=== PATIENT | female | born 1955 ===

== ENCOUNTER 2018-06-28 07:13 | Emergency (ER) | payer SELFPAY ==
[~2018-06-28] VITALS: Ht 160 cm; Wt 79.4 kg
[~2018-06-28 07:13] MED LIST: ACYC400 PO; ASPI81CH PO; Amoxicillin500 MG PO; CEPH500 PO; Cipro500 MG PO; FAMO20 PO; GABA100 PO; GABA300 PO; GAVILAX17 GM PO; GI COCKTAIL MT; GUAI600T33 PO; INSDET100 SC; INSLI100I SUBQ; INSUASPI; INSULANPEN SQ; LIDOCAINE 2% MT; LISI5 PO; Norco 5-325 Ta1 EACH PO; Novolog100 UNIT/2 SC; ROBITUSSIN100 MG/5 M PO; Tylenol325 MG PO; Vitamin D2000 UNIT PO; [UNRECOGNIZED DRUG - CODE]
[2018-06-28 07:52] LABS: BASOPHILS ABSOLUTE AUTO 0.03 K/mm3 (0.00-0.23); BASOPHILS PERCENT AUTO 1 % (0-2); EOSINOPHILS ABSOLUTE AUTO 0.12 K/mm3 (0.00-0.68); EOSINOPHILS PERCENT AUTO 2 % (0-6); Hemoglobin 13.9 g/dL (11.5-16.0); IMMATURE GRAN ABSOLUTE AUTO 0.01 K/mm3 (0.00-0.10); IMMATURE GRAN PERCENT AUTO 0 % (0-1); LYMPHOCYTES ABSOLUTE AUTO 2.06 K/mm3 (0.84-5.20); LYMPHOCYTES PERCENT AUTO 38 % (21-46); MONOCYTES PERCENT AUTO 7 % (4-13); Mean Corpuscular HGB 30.3 pg (26.0-34.0); Mean Corpuscular HGB Conc 33.9 g/dL (31.5-36.5); Mean Corpuscular Volume 90 fL (80-100); Mean Platelet Volume 10.3 fL (9.1-12.4); NEUTROPHILS ABSOLUTE AUTO 2.88 K/mm3 (1.96-9.15); NEUTROPHILS PERCENT AUTO 52 % (41-73); Platelet Count 303 K/mm3 (150-400); RDW Coefficient Variation 13.2 % (11.7-14.2); RDW Standard Deviation 43.4 fL (35.1-46.3); Red Blood Cell Count 4.58 M/mm3 (3.80-5.20)
[2018-06-28 07:56] LABS: Base Excess Venous 6.9 mmol/L; Bicarbonate Venous 29.6 mmol/L (24.0-30.0); PCO2 Venous 48.4 mmHg (38-42); PO2 Venous 111 mmHg (38-42); pH Blood Venous 7.42 (7.34-7.37)
[2018-06-28 08:21] LABS: Alanine Aminotransfer (ALT/SGP 62 U/L (12-78); Albumin, Blood 3.7 g/dL (3.4-5.0); Albumin/Globulin Ratio 0.8 (0.8-1.8); Alk Phos 430 U/L (50-136); Anion Gap 9 mmol/L (6-16); Aspartate Aminotrans (AST/SGOT 38 U/L (12-37); Beta-hydroxybutyrate 0.9 mg/dL (0.2-2.8); Bilirubin, Total 0.3 mg/dL (0.1-1.0); Blood Urea Nitrogen 30 mg/dL (8-24); Bun/Creatinine Ratio 34.7 (12.0-20.0); CO2, Blood 30 mmol/L (21-32); Calcium, Blood 9.4 mg/dL (8.5-10.1); Chloride, Blood 100 mmol/L (98-108); Creatinine, Blood 0.86 mg/dL (0.40-1.00); Globulin, Blood 4.6 g/dL (2.2-4.0); Glomerular Filtration Rate >60 (60-); Glucose, Blood 331 mg/dL (70-99); Potassium, Blood 3.5 mmol/L (3.5-5.5); Sodium, Blood 139 mmol/L (136-145); Total Protein, Blood 8.3 g/dL (6.4-8.2); Troponin I <0.015 ng/mL (0.000-0.040)
== END 2018-06-28 09:02 | disposition home or self-care (01) ==
LOC: ER 07:13
PROVIDERS: Physician Assistant
DX: E11.65 Type 2 diabetes mellitus with hyperglycemia (principal); I10 Essential (primary) hypertension; Z79.899 Other long term (current) drug therapy; Z79.82 Long term (current) use of aspirin; Z79.4 Long term (current) use of insulin
CPT/HCPCS: 36415; 71046; 80053; 82010; 82803; 82947; 84484; 85025; 93005; 93010; 96360; 99285-25; J7030

== ENCOUNTER → 2018-11-09 | Outpatient (CLI) | payer SELFPAY ==
[2018-11-09 11:17] LABS: BASOPHILS ABSOLUTE AUTO 0.03 K/mm3 (0.00-0.23); BASOPHILS PERCENT AUTO 1 % (0-2); EOSINOPHILS ABSOLUTE AUTO 0.11 K/mm3 (0.00-0.68); EOSINOPHILS PERCENT AUTO 3 % (0-6); Hematocrit 39.9 % (33.0-51.0); Hemoglobin 13.3 g/dL (11.5-16.0); IMMATURE GRAN ABSOLUTE AUTO 0.01 K/mm3 (0.00-0.10); IMMATURE GRAN PERCENT AUTO 0 % (0-1); LYMPHOCYTES ABSOLUTE AUTO 1.58 K/mm3 (0.84-5.20); LYMPHOCYTES PERCENT AUTO 37 % (21-46); MONOCYTES ABSOLUTE AUTO 0.37 K/mm3 (0.16-1.47); MONOCYTES PERCENT AUTO 9 % (4-13); Mean Corpuscular HGB 31.4 pg (26.0-34.0); Mean Corpuscular HGB Conc 33.3 g/dL (31.5-36.5); Mean Corpuscular Volume 94 fL (80-100); Mean Platelet Volume 10.2 fL (9.1-12.4); NEUTROPHILS ABSOLUTE AUTO 2.14 K/mm3 (1.96-9.15); NEUTROPHILS PERCENT AUTO 51 % (41-73); Platelet Count 331 K/mm3 (150-400); RDW Coefficient Variation 13.7 % (11.7-14.2); RDW Standard Deviation 46.9 fL (35.1-46.3); Red Blood Cell Count 4.23 M/mm3 (3.80-5.20); White Blood Cell Count 4.24 K/mm3 (4.00-11.30)
[2018-11-09 11:29] LABS: Albumin, Blood 3.4 g/dL (3.4-5.0); Albumin/Globulin Ratio 0.8 (0.8-1.8); Bilirubin, Total 0.5 mg/dL (0.1-1.0); Bun/Creatinine Ratio 22.1 (12.0-20.0); Creatinine, Blood 1.49 mg/dL (0.40-1.00); Globulin, Blood 4.3 g/dL (2.2-4.0); Potassium, Blood 4.4 mmol/L (3.5-5.5); Total Protein, Blood 7.7 g/dL (6.4-8.2)
== END | disposition home or self-care (01) ==
LOC: LAB SHORT 11:13 → LAB EV 11:13
PROVIDERS: Physician Assistant
DX: R10.84 Generalized abdominal pain (principal); N39.0 Urinary tract infection, site not specified
CPT/HCPCS: 80053; 83690; 85025; 87086

== ENCOUNTER 2019-08-07 08:51 | Day surgery (SDC) | payer MEDICARE ==
[2019-08-07 10:49] LABS: Performing Lab VERACYTE; Test Name FNA
== END 2019-08-07 22:45 | disposition home or self-care (01) ==
LOC: US 08:51
DX: E04.2 Nontoxic multinodular goiter (principal); E11.319 Type 2 diabetes mellitus with unspecified diabetic retinopathy without macular edema; I10 Essential (primary) hypertension; E11.42 Type 2 diabetes mellitus with diabetic polyneuropathy; G89.29 Other chronic pain; E78.2 Mixed hyperlipidemia; K21.9 Gastro-esophageal reflux disease without esophagitis; M54.9 Dorsalgia, unspecified; Z79.82 Long term (current) use of aspirin; Z79.4 Long term (current) use of insulin; Z79.899 Other long term (current) drug therapy
CPT/HCPCS: 10005; 10006

== ENCOUNTER 2019-11-14 13:30 | Emergency (ER) | payer MEDICARE ==
[~2019-11-14] VITALS: Ht 160 cm; Wt 68.0 kg
[2019-11-14] MEDS ORDERED: Aspir 8181 MG PO (14:15)
[2019-11-14] MEDS ORDERED: GABA300 PO (14:15)
[2019-11-14] MEDS ORDERED: ZESTORETIC 20-121 EA PO (14:16)
[2019-11-14] MEDS ORDERED: OMEPRAZOLE20 MG PO (14:16)
[2019-11-14] MEDS ORDERED: NEURONTIN600 MG PO (14:16)
[2019-11-14] MEDS ORDERED: LEVSOD100 PO (14:16)
[2019-11-14] MEDS ORDERED: FURO20 PO (14:16)
[2019-11-14 14:17] LABS: BASOPHILS ABSOLUTE AUTO 0.03 K/mm3 (0.00-0.23); BASOPHILS PERCENT AUTO 1 % (0-2); EOSINOPHILS PERCENT AUTO 2 % (0-6); Hematocrit 37.9 % (33.0-51.0); Hemoglobin 12.5 g/dL (11.5-16.0); IMMATURE GRAN ABSOLUTE AUTO 0.02 K/mm3 (0.00-0.10); IMMATURE GRAN PERCENT AUTO 0 % (0-1); LYMPHOCYTES ABSOLUTE AUTO 1.42 K/mm3 (0.84-5.20); LYMPHOCYTES PERCENT AUTO 27 % (21-46); MONOCYTES ABSOLUTE AUTO 0.63 K/mm3 (0.16-1.47); MONOCYTES PERCENT AUTO 12 % (4-13); Mean Corpuscular HGB 31.6 pg (26.0-34.0); Mean Corpuscular Volume 96 fL (80-100); Mean Platelet Volume 10.4 fL (9.1-12.4); NEUTROPHILS PERCENT AUTO 58 % (41-73); Platelet Count 376 K/mm3 (150-400); RDW Coefficient Variation 17.1 % (11.7-14.2); RDW Standard Deviation 60.8 fL (35.1-46.3); Red Blood Cell Count 3.96 M/mm3 (3.80-5.20)
[2019-11-14] MEDS ORDERED: Colace100 MG PO (14:17)
[2019-11-14 14:32] LABS: Alanine Aminotransfer (ALT/SGP 134 U/L (12-78); Albumin, Blood 2.7 g/dL (3.4-5.0); Albumin/Globulin Ratio 0.5 (0.8-1.8); Anion Gap 6 mmol/L (6-16); Aspartate Aminotrans (AST/SGOT 86 U/L (12-37); Bilirubin, Total 0.7 mg/dL (0.1-1.0); Blood Urea Nitrogen 32 mg/dL (8-24); Bun/Creatinine Ratio 36.3 (12.0-20.0); CO2, Blood 32 mmol/L (21-32); Calcium, Blood 9.4 mg/dL (8.5-10.1); Chloride, Blood 99 mmol/L (98-108); Creatinine, Blood 0.88 mg/dL (0.40-1.00); Glomerular Filtration Rate >60 (60-); Glucose, Blood 98 mg/dL (70-99); Potassium, Blood 3.7 mmol/L (3.5-5.5); Sodium, Blood 137 mmol/L (136-145); Total Protein, Blood 7.7 g/dL (6.4-8.2)
[2019-11-14 14:36] LABS: Troponin I <0.015 ng/mL (0.000-0.040)
[2019-11-14 15:08] LABS: Alk Phos 1434 U/L (50-136)
[2019-11-14] MEDS ORDERED: LOVASTATIN40 MG PO (15:22)
[2019-11-14] MEDS ORDERED: LEVEMIR FL100 UNIT/1 SC (15:23)
[2019-11-14] MEDS ORDERED: NOVOLOG100 UNIT/1 SC (15:23)
== END 2019-11-14 17:45 | disposition home or self-care (01) ==
LOC: ER 13:30
PROVIDERS: Physician Assistant
DX: K20.9 Esophagitis, unspecified (principal); R79.89 Other specified abnormal findings of blood chemistry; E11.9 Type 2 diabetes mellitus without complications; I10 Essential (primary) hypertension; Z79.899 Other long term (current) drug therapy; Z79.82 Long term (current) use of aspirin
CPT/HCPCS: 36415; 71046; 71260; 80053; 83690; 83880; 84484; 85025; 93005; 93010; 99285-25; Q9967

== ENCOUNTER 2020-07-31 10:02 | Inpatient (IN) | payer MEDICARE, OTHER ==
[~2020-07-31] VITALS: Ht 152.4 cm; Wt 67.3 kg
[~2020-07-31 10:02] MED LIST changes: +Aspir 8181 MG PO; +Colace100 MG PO; +FURO20 PO; +LEVEMIR FL100 UNIT/2 SC; +LEVSOD100 PO; +LISINOPRIL-HCT1 EACH PO; +LOVASTATIN40 MG PO; +NEURONTIN600 MG PO; +NOVOLOG FL100 UNIT/3 SC; +OMEPRAZOLE20 MG PO
[2020-07-31 11:05] LABS: BASOPHILS ABSOLUTE AUTO 0.01 K/mm3 (0.00-0.23); BASOPHILS PERCENT AUTO 0 % (0-2); EOSINOPHILS PERCENT AUTO 0 % (0-6); Hematocrit 38.5 % (33.0-51.0); Hemoglobin 12.5 g/dL (11.5-16.0); IMMATURE GRAN ABSOLUTE AUTO 0.04 K/mm3 (0.00-0.10); IMMATURE GRAN PERCENT AUTO 1 % (0-1); LYMPHOCYTES ABSOLUTE AUTO 0.61 K/mm3 (0.84-5.20); LYMPHOCYTES PERCENT AUTO 12 % (21-46); MONOCYTES ABSOLUTE AUTO 0.11 K/mm3 (0.16-1.47); MONOCYTES PERCENT AUTO 2 % (4-13); Mean Corpuscular HGB 29.9 pg (26.0-34.0); Mean Corpuscular HGB Conc 32.5 g/dL (31.5-36.5); Mean Corpuscular Volume 92 fL (80-100); Mean Platelet Volume 10.5 fL (9.1-12.4); NEUTROPHILS ABSOLUTE AUTO 4.46 K/mm3 (1.96-9.15); NEUTROPHILS PERCENT AUTO 85 % (41-73); Platelet Count 248 K/mm3 (150-400); RDW Coefficient Variation 13.4 % (11.7-14.2); RDW Standard Deviation 45.9 fL (35.1-46.3); Red Blood Cell Count 4.18 M/mm3 (3.80-5.20); White Blood Cell Count 5.23 K/mm3 (4.00-11.30)
[2020-07-31 11:17] LABS: Alanine Aminotransfer (ALT/SGP 49 U/L (12-78); Albumin, Blood 2.2 g/dL (3.4-5.0); Albumin/Globulin Ratio 0.4 (0.8-1.8); Alk Phos 958 U/L (50-136); Anion Gap 7 mmol/L (6-16); Aspartate Aminotrans (AST/SGOT 81 U/L (12-37); Bilirubin, Total 0.4 mg/dL (0.1-1.0); Blood Urea Nitrogen 10 mg/dL (8-24); Bun/Creatinine Ratio 15.2 (12.0-20.0); CO2, Blood 33 mmol/L (21-32); Calcium, Blood 8.2 mg/dL (8.5-10.1); Chloride, Blood 97 mmol/L (98-108); Creatinine, Blood 0.66 mg/dL (0.40-1.00); Globulin, Blood 5.1 g/dL (2.2-4.0); Glomerular Filtration Rate >60 (60-); Glucose, Blood 214 mg/dL (70-99); Potassium, Blood 3.2 mmol/L (3.5-5.5); Sodium, Blood 137 mmol/L (136-145); Total Protein, Blood 7.3 g/dL (6.4-8.2)
[2020-07-31 12:27] LABS: Source, Urine Clean Catch
[2020-07-31 12:41] LABS: Appearance, Urine Clear (Clear); Bilirubin, Urine Neg (Neg); Blood, Urine 1+ (Neg); Color, Urine Yellow (P-Yellow); Glucose Qualitative, Urine 4+ (Neg); Ketones, Urine 3+ (Neg); Leukocyte Esterase, Urine Neg (Neg); Nitrite, Urine Neg (Neg); Protein, Urine 2+ (Neg); Specific Gravity, Urine 1.005 (1.003-1.022); Urobilinogen, Urine 1+ (Normal)
[2020-07-31 12:56] LABS: Bacteria Few /hpf; Red Blood Cells, Urine 0-2 /hpf (0-2); Squamous Epithelial Cells Few /hpf (Few); White Blood Cells, Urine 0-2 /hpf (0-5)
[2020-07-31 18:13] LABS: PCO2 Arterial 49.6 mmHg (35-45); PO2 Arterial 57.7 mmHg (80-100); pH Blood Arterial 7.41 (7.35-7.45)
--- NOTE | 2020-08-01 06:47 | NUR ---
SUMMARY PT ABLE TO SLEEP THROUGH MOST OF NIGHT. ALERT AND ORIENTED X 3, FAROESE SPEAKING. LUNG SOUNDS DIMISHED WITH O2 AT 3 LPM VIA N/C, COUGHING UP CLEAR THICK SPUTUM, SMALL AMTS. STAND BY ASSIST TO BSC, VOIDING CLEAR YELLOW URINE. STEADY ON FEET. ISOLATION PRECAUTIONS THOUGHOUT SHIFT. WILL CONTINUE TO MONITOR
--- NOTE | 2020-08-01 16:52 | NUR ---
SHIFT NOTE PT WITH SPO2 IN HIGH 80s AT SHIFT CHANGE ON 4L NC, PT WAS PLACED ON 5L O2 WITH SPO2 93%. PT HAS BEEN UP TO BEDSIDE CHAIR FOR MOST OF THE DAY. NADN. VSS. HAS NEEDED COVERAGE FOR GLUCOSE, DR FIGUEROA IS AWARE NO NEW ORDER TO CHANGE THE SLIDING SCALE WE WILL OBSERVE HOW PT REPONDS TO MED SLIDING SCALE WITH ADDITIONAL 7UNITS OF COVERAGE, GLUCOSE DOES APPEAR TO BE REPSONDING WELL THIS SHIFT TO INSULIN MED SS. LS ARE CLEAR IN THE UPPER LOBES WITH COARSE BASES BILAT. PT A/O X4. PT IS NON [place]OT[place] SPEAKING BUT DOES UNDERSTAND BASIC [place].
--- NOTE | 2020-08-02 06:19 | NUR ---
SUMMARY PT RESTING COMFORTABLY MOST THE NIGHT. USED INTERPRETOR PHONE TO COMMUNICATE WITH PATIENT. 02 SATS REMAINED IN THE UPPER 80s TO LOWER 90s WITH NO COMPLAINTS OF PAIN OR SOB ON 6L NC. PT INDEPENDENT TRANSFERING FROM BED TO CHAIR. AT 0525 I WENT TO GIVE THE PT MEDICTION AND SHE WAS SOB WITH 02 SATS IN THE LOWER TO MID 80s. EPIC WILLOW SPECIALIST WAS CALLED, PT COMPLAINED OF CHEST PAIN AND HEADACHE 8/10 PAIN. EKG WAS DONE AND RT WAS CALLED. PT PLACED ON 11L HIGH FLOW NC. PT 02 SATS IN THE LOWER 90s, PT STATES SHE IS NO LONGER SOB, HEADACHE AND CHEST PAIN RESOLVED. PLACED ON CONTINOUS OXIMETER TO MONITOR CLOS[place]. PT REMINDED TO USE CALL LIGHT IF SHE HAS ANY CHANGES. CALL LIGHT IS IN REACH, BED IN LOW POSITION.
--- NOTE | 2020-08-02 18:13 | NUR ---
SHIFT NOTE PT HAS BEEN TITRATED FROM 9-14L O2 VIA HIGH FLOW NC T/O THE DAY. SPO2 DOES REMAIN AROUND 88%-90% AT 14L WHILE UP IN CHAIR, AND 94% ON 9-11L WHILE SLEEPING. CAR REPAIRER APPRENTICE PHONE IS USED T/O THE DAY AND DIRECT CONVERSATION WITH PT. PT DENIES SOB OR CP THIS EVENING. PT DID REPORT SOME CP WITH INSPIRATION THIS AM BUT HAS SINCE RESOLVED. PT HAS BEEN UP TO THE SEDSIDE CHAIR FOR MOST OF THE DAY. DR DOMINGUEZ IS AWARE OF PT'S O2 NEEDS HE STS TO CALL HIM IF SHE REQUIRES AIRVO PT WILL LIKELY NEED UPGRADED TO ICU STATUS. PT IS CURRETNLY RESTING IN CHAIR WATCHING TV NADN
--- NOTE | 2020-08-03 04:44 | NUR ---
SUMMARY INTERPRETOR PHONE USED TO COMMUNICATE WITH PT. SHE IS COOPERATIVE AND SLEPT MOST THE NIGHT. O2 SATS REMAINED IN THE UPPER 80s TO LOWER 90s THROUGHOUT THE NIGHT. WITH ACTIVITY HER O2 SATS WOULD DROP INTO THE LOWER 70s BUT AT REST PT WOULD QUICKLY RECOVER WITH COACHING ON HER BREATHING. VSS NO ACUTE CHANGES OVERNIGHT. CALL LIGHT IN REACH, CHECKING ON PT REGULARLY, BED IN LOW POSTION.
--- NOTE | 2020-08-03 18:41 | NUR ---
SHIFT SUMMARY NO ACUTE CHANGES NOTED THROUGH THE DAY. PT REMAINS ON 15L O2 VIA HIGH FLOW NC, O2 SATS FLUCTUATE BETWEEN 88-92% AT REST, O2 SATS WILL DECREASE TO LOW 80'S WITH ACTIVITY, PT TAKES A MOMENT TO RECOVERY, DB&C ENC, PT HAS ATTEMPTED TO HOLD HER COUGH, SHE WAS EDUCATED VIA VIDEO NEWS EDITOR PHONE, PT IS TOLERATING PO INTAKE WNL, VOING WITH NO PROBLEMS, PT'S PERSONAL PHONE WAS CONNECTED BETWEEN USE OF VIDEO NEWS EDITOR PHONE SO THAT SHE COULD CONTACT FAMILY. PT CALLS FOR ASSISTANCE PRN. WCPRIYANKA & REPORT TO PEDRO RN. CALL LIGHT IN REACH
--- NOTE | 2020-08-04 05:53 | NUR ---
SHIFT SUMMARY PT A&O X4; UPHOLSTERY HANDLER PHONE USED FOR COMMUNICATION; VSS; NSR NOTED ON TELE; DESATURATION W/ ACTIVITY; SIGNIFICANT NOSE BLEEDING 1X THIS SHIFT; NO ACUTE CHANGES NOTED; CALL LIGHT IN REACH; BED IN LOWEST POSITION; WILL CONTINUE TO MONITOR UNTIL HAND OFF TO DAY SHIFT RN.
--- NOTE | 2020-08-04 19:36 | NUR ---
SHIFT SUMMARY PT HAS HAD A GOOD DAY. SHE HAS BEEN USING THE NON BREATHER MASK THROUGH THE DAY IN BETWEEN MEALS TO DECREASE DRYNESS IN HER NOSE. SHE KEEPS GETTING BLOODY NOSES. PT WAS GIVEN SALINE NASAL SPRAY. SHE TOLERATED THE MASK WITH NO PROBLEMS, RT WAS CALLED TO ASSESS PT & TO ASSIST WITH PRONE POSITIONING. PT WAS SWITCHED TO AN AIRVO THIS AFTERNOON TO ENHANCE HUMIDIFICATION, 40 L 50% FIO2, RESP REMAIN UNLABORED, O2 SATS >93%. HOSPITALIST WAS CONTACTED BY RT, AIRVO WAS AGREED UPON. PT HAS DENIED SOB AT REST, SHE DESATS TO MID 80'S WITH ACTIVITY NUT WILL RECOVERY QUICKLY. SHE IS TLERATING PO INTAKE, VOIDING WNL. NO ACUTE CHANGES NOTED, REPORT GIVEN TO NOC RN, CALL LIGHT IN REACH.
--- NOTE | 2020-08-05 06:21 | NUR ---
SUMMARY PT ON AIRVO AT BEGINNING OF SHIFT WITH O2 SATS IN THE LOWER 90s. INCIDENT RESPONSE MANAGER PHONE USED TO COMMUNICATE WITH PT AND EXPLAIN PROCEDURES. PT REQUESTED USING THE NRB MASK WHILE SHE SLEPT BECAUSE HER NOSE HURTS. PT SLEPT MOST THE NIGHT ON THE NRB WITH 02 SATS IN THE LOWER 90s.CALL LIGHT IN REACH AND BED IN LOW POSITION.
--- NOTE | 2020-08-05 07:35 | NUR ---
ASSUMED PATIENT CARE. PATIENT SLEEPING COMFORTABLY IN BED, NO SIGNS OF ACUTE DISTRESS, WCTM.
--- NOTE | 2020-08-05 18:38 | NUR ---
NO ACUTE EVENTS THIS SHIFT. PATIENT HYPERTENSIVE AT TIMES, IMPROVEMENT POST-PO BP TAG WRITER. PATIENT ON 4L HUMIDIFIED NC THIS SHIFT, RANGED FROM 88-MID 90S. PATIENT ENCOURAGED TO LAY PRONE, PATIENT NAPPED IN PRONE POSITION THIS SHIFT. PATIENT ENDORSED SORE THROAT, ORDER FOR HURRICANE SPRAY GIVEN. PATIENT DENIED ANY OTHER PAIN. PATIENT IS SBA FOR LINE MANAGEMENT.
--- NOTE | 2020-08-06 04:32 | NUR ---
SHIST SUMMARY PT ABLE TO MAINTAIN 02 SATS @ REST ON 5LO2 AT START OF SHIFT, 0150 PT FOUND TO BE DESATTING AND PLACED ON 8L NRB, RT CALLED WHO PLACED PT ON AIRVO FOR REMAINDER OF NIGHT, PT SLEPT WELL, NO C/O ANY KIND, ST BY ASSIST TO BSC W/INCREASED O2 NEEDS DURING XFER, SLEEPING AT THIS TIME, CALL LIGHT IN REACH, WILL CONT TO MONITOR UNTIL REPORT GIVEN TO DAY RN.
--- NOTE | 2020-08-06 06:00 | NUR ---
SHIFT SUMMARY PT ABLE TO MAINTAIN 02 SATS AT REST ON 5LO2 AT START OF SHIFT, @ 0150 PT FOUND DESATTING AT PLACED ON 10L HIFLO FOR REMAINER OF NIGHT. SLEPT WELL, NO C/O ANY KIND, ST BY ASSIST TO BSC, CALLS APPROPIATELY, CALL LIGHT IN REACH, WILL CONT TO MONITOR UNTIL REPORT GIVEN TO DAY RN.
[2020-08-06 08:53] LABS: Anion Gap 4 mmol/L (6-16); Blood Urea Nitrogen 28 mg/dL (8-24); Bun/Creatinine Ratio 44.9 (12.0-20.0); CO2, Blood 33 mmol/L (21-32); Calcium, Blood 8.8 mg/dL (8.5-10.1); Chloride, Blood 101 mmol/L (98-108); Creatinine, Blood 0.62 mg/dL (0.40-1.00); Glomerular Filtration Rate >60 (60-); Glucose, Blood 304 mg/dL (70-99); Potassium, Blood 4.3 mmol/L (3.5-5.5); Sodium, Blood 138 mmol/L (136-145)
--- NOTE | 2020-08-06 18:04 | NUR ---
SHIFT NOTE PT HAS HAD DECREASED O2 NEEDS T/O THE DAY HAS SPO2 OF 92% ON 3L NC. PT HAS HAD CHEMBG'S IN THE 300s T/O THE DAY, BUT LAST BLOOD SUGAR WAS 36. DR ELLIOTT IS NOTIFIED, OJ IS DRANK, D50 IS ADMINISTERED IV. WILL REASSESS BLOOD SUGAR WITHIN AN HOUR OF D50 ADMINISTATION. DR ELLIOTT WILL CHANGE INSULIN DOSING. PT REPORTS SOME DIZZINESS, BUT IS SETTING UP SMILING ANSWERING QUESTIONS APPROPRIATELY WITH EXTENSION WORK DIRECTOR PHONE.
[2020-08-07 05:45] LABS: Alanine Aminotransfer (ALT/SGP 38 U/L (12-78); Albumin/Globulin Ratio 0.5 (0.8-1.8); Alk Phos 533 U/L (50-136); Anion Gap 4 mmol/L (6-16); Aspartate Aminotrans (AST/SGOT 33 U/L (12-37); Bilirubin, Total 0.3 mg/dL (0.1-1.0); Blood Urea Nitrogen 37 mg/dL (8-24); Bun/Creatinine Ratio 50.9 (12.0-20.0); CO2, Blood 31 mmol/L (21-32); Calcium, Blood 8.7 mg/dL (8.5-10.1); Chloride, Blood 99 mmol/L (98-108); Creatinine, Blood 0.73 mg/dL (0.40-1.00); Globulin, Blood 4.1 g/dL (2.2-4.0); Glomerular Filtration Rate >60 (60-); Glucose, Blood 376 mg/dL (70-99); Potassium, Blood 4.6 mmol/L (3.5-5.5); Sodium, Blood 134 mmol/L (136-145); Total Protein, Blood 6.1 g/dL (6.4-8.2)
--- NOTE | 2020-08-07 10:42 | NUR ---
MORNING MEDICATION ADMIN IS PART OF EMAR DOWNTIME, PLEASE SEE DOWNTIME DOUCMENTATION
[2020-08-07 15:25] LABS: BASOPHILS ABSOLUTE AUTO 0.01 K/mm3 (0.00-0.23); BASOPHILS PERCENT AUTO 0 % (0-2); EOSINOPHILS PERCENT AUTO 0 % (0-6); Hematocrit 39.5 % (33.0-51.0); Hemoglobin 13.2 g/dL (11.5-16.0); IMMATURE GRAN ABSOLUTE AUTO 0.15 K/mm3 (0.00-0.10); IMMATURE GRAN PERCENT AUTO 2 % (0-1); LYMPHOCYTES ABSOLUTE AUTO 0.86 K/mm3 (0.84-5.20); LYMPHOCYTES PERCENT AUTO 12 % (21-46); MONOCYTES PERCENT AUTO 4 % (4-13); Mean Corpuscular HGB 30.3 pg (26.0-34.0); Mean Corpuscular HGB Conc 33.4 g/dL (31.5-36.5); Mean Corpuscular Volume 91 fL (80-100); Mean Platelet Volume 10.3 fL (9.1-12.4); NEUTROPHILS ABSOLUTE AUTO 6.05 K/mm3 (1.96-9.15); NEUTROPHILS PERCENT AUTO 82 % (41-73); Platelet Count 451 K/mm3 (150-400); RDW Coefficient Variation 13.9 % (11.7-14.2); RDW Standard Deviation 45.9 fL (35.1-46.3); Red Blood Cell Count 4.36 M/mm3 (3.80-5.20); White Blood Cell Count 7.37 K/mm3 (4.00-11.30)
--- NOTE | 2020-08-07 17:28 | NUR ---
Per admit trigger, I attempted to meet with Kayleen to offer prayer and spiritual support. Per chart, she is mandaen. Nursing advised against in-person visit as pt is Covid+ and does not speak cambodian at all. Provided jing for RN to give pt. Asked nursing to inform pt that chaplains a holding her in prayer. Payroll Tax Analyst services will remain available.
--- NOTE | 2020-08-07 18:44 | NUR ---
SHIFT NOTE MORNING SHIFT ASSESSMENT IN DOWNTIME DOCUMENTATION AND MORNING MEDS. PT HAS BEEN RETURNED TO 3L NC WITH SPO2 OF 94%. PT HAS BEEN UP TO BEDSIDE CHIAR AND LYING IN PRONE POSITION INTERMITTENTLY T/O THE DAY. HYPOTENSION NOTED AT THE END OF THE SHIFT, WILL OBSERVE. EVENING CHEMBG 75, EVENING INSULIN WAS HELD. OTHEWISE NO ACUTE CHANGES
--- NOTE | 2020-08-08 05:45 | NUR ---
SHIFT SUMMARY PT SLEPT T/O SHIFT. PT ALERT AND ORIENTED. HR STABLE. BP STABLE. PT REPORTS NO CP OR PRESSURE. OXYGEN SATURATION MAINTAINED ABOVE 92% ON 3 L OF OXYGEN VIA NC. PT ABLE TO TURN SELF IN BED. WILL CONTINUE TO MONITOR UNTIL REPORT GIVEN TO DAYSHIFT RN.
--- NOTE | 2020-08-08 08:27 | NUR ---
ASSUMING CARE OF PT, RECEIVED REPORT FROM LOREE AMIN. PT SITTING IN BEDSIDE CHAIR WITH BREAKFAST TRAY. PT TAKES MORNING MEDICATION WITHOUT DIFFICULTY, DENIES NEEDS AT THIS TIME. CALL LIGHT WITHIN REACH.
--- NOTE | 2020-08-08 11:24 | NUR ---
REPEAT CHEMBG REVEALS BLOOD SUGAR LEVEL OF 430. DR ELLIOTT NOTIFIED OF RESULTS, GIVES INSTRUCTIONS TO CONTINUE TO GIVE INSULIN ORDERED.
[2020-08-08 11:32] LABS: Anion Gap 7 mmol/L (6-16); Blood Urea Nitrogen 45 mg/dL (8-24); Bun/Creatinine Ratio 64.4 (12.0-20.0); CO2, Blood 30 mmol/L (21-32); Calcium, Blood 8.6 mg/dL (8.5-10.1); Chloride, Blood 96 mmol/L (98-108); Glomerular Filtration Rate >60 (60-); Glucose, Blood 453 mg/dL (70-99); Potassium, Blood 4.1 mmol/L (3.5-5.5); Sodium, Blood 133 mmol/L (136-145)
== END 2020-08-08 16:35 | disposition home or self-care (01) | DRG 177 ==
LOC: ER 10:02 → PCU 10:03
PROVIDERS: Emergency Medicine; Family Medicine; Internal Medicine; Physician Assistant; ADMIT Hospitalist
PROC: XW033E5 Introduction of Remdesivir Anti-infective into Peripheral Vein, Percutaneous Approach, New Technology Group 5 (ICD-10-PCS; principal; 2020-07-31)
PROC: XW033E5 Introduction of Remdesivir Anti-infective into Peripheral Vein, Percutaneous Approach, New Technology Group 5 (ICD-10-PCS; 2020-08-01)
PROC: XW033E5 Introduction of Remdesivir Anti-infective into Peripheral Vein, Percutaneous Approach, New Technology Group 5 (ICD-10-PCS; 2020-08-02)
PROC: XW033E5 Introduction of Remdesivir Anti-infective into Peripheral Vein, Percutaneous Approach, New Technology Group 5 (ICD-10-PCS; 2020-08-03)
PROC: XW033E5 Introduction of Remdesivir Anti-infective into Peripheral Vein, Percutaneous Approach, New Technology Group 5 (ICD-10-PCS; 2020-08-04)
DX: U07.1 COVID-19 (principal); J96.01 Acute respiratory failure with hypoxia; J12.89 Other viral pneumonia; E87.3 Alkalosis; E11.9 Type 2 diabetes mellitus without complications; I10 Essential (primary) hypertension; K21.9 Gastro-esophageal reflux disease without esophagitis; E78.5 Hyperlipidemia, unspecified; R74.8 Abnormal levels of other serum enzymes; E87.6 Hypokalemia; E03.9 Hypothyroidism, unspecified; Z79.4 Long term (current) use of insulin
CPT/HCPCS: 36415; 36600; 71045; 71046; 76705; 80048; 80053; 81001; 82803; 82947; 82977; 83036; 83690; 84145; 85025; 93005; 93010; 94660; 94761; 94762; 96365; 96372-59; 96375; 99285-25; A9270; A9270-GY; J0456; J0696; J1650; J7050; J7799; U0003

== ENCOUNTER → 2021-07-29 | Outpatient (CLI) | payer MEDICARE ==
[2021-07-29 14:33] LABS: Alanine Aminotransfer (ALT/SGP 128 U/L (12-78); Albumin, Blood 3.2 g/dL (3.4-5.0); Albumin/Globulin Ratio 0.7 (0.8-1.8); Alk Phos 624 U/L (50-136); Anion Gap 5 mmol/L (6-16); Aspartate Aminotrans (AST/SGOT 69 U/L (12-37); Bilirubin, Total 0.4 mg/dL (0.1-1.0); Blood Urea Nitrogen 25 mg/dL (8-24); Bun/Creatinine Ratio 29.3 (12.0-20.0); CHOL/HDL RATIO 2.6; CO2, Blood 30 mmol/L (21-32); Calcium, Blood 9.3 mg/dL (8.5-10.1); Chloride, Blood 105 mmol/L (98-108); Cholesterol 227 mg/dL (50-200); Creatinine, Blood 0.85 mg/dL (0.40-1.00); Globulin, Blood 4.3 g/dL (2.2-4.0); Glomerular Filtration Rate >60 (60-); Glucose, Blood 133 mg/dL (70-99); HDL Cholesterol 88 mg/dL (>39); LDL/HDL RATIO 1.3; Low Density Lipoprotein Chol 110 mg/dL (0-110); Potassium, Blood 3.9 mmol/L (3.5-5.5); Sodium, Blood 140 mmol/L (136-145); Total Protein, Blood 7.5 g/dL (6.4-8.2); Triglycerides 144 mg/dL (30-160); Very Low Density Lipoprot Chol 28 mg/dL (6-32)
[2021-07-29 14:39] LABS: Glutamyl Transpeptidase, GGT 1245 U/L (5-55)
== END | disposition home or self-care (01) ==
LOC: LAB SHORT 12:37
PROVIDERS: Family Medicine
DX: E78.5 Hyperlipidemia, unspecified (principal); R94.5 Abnormal results of liver function studies
CPT/HCPCS: 80053; 80061; 82977

== ENCOUNTER → 2022-09-15 | Outpatient (CLI) | payer MEDICARE | LOC: LAB SHORT 13:06 | DX: E03.9 Hypothyroidism, unspecified (principal) | CPT/HCPCS: 84443 ==

== ENCOUNTER 2024-08-21 19:17 | Inpatient (IN) | payer MEDICARE, OTHER ==
[~2024-08-21] VITALS: Ht 167.6 cm; Wt 62.1 kg
[2024-08-21] MEDS ORDERED: FUROSEMIDE20 MG PO (19:34)
[2024-08-21] MEDS ORDERED: GABA100 PO (19:34)
[2024-08-21] MEDS ORDERED: JARDIANCE10 MG PO (19:35)
[2024-08-21] MEDS ORDERED: OMEP20ER PO (19:36)
[2024-08-21] MEDS ORDERED: ZESTRIL40 M2 PO (19:37)
[2024-08-21] MEDS ORDERED: TIZANIDINE HCL2 M4 PO (19:38)
[2024-08-21] MEDS ORDERED: METFORMIN HCL500 M3 PO (19:38)
[2024-08-21 19:45] LABS: BASOPHILS ABSOLUTE AUTO 0.02 K/mm3 (0.00-0.23); BASOPHILS PERCENT AUTO 0 % (0-2); EOSINOPHILS PERCENT AUTO 2 % (0-6); Hematocrit 35.3 % (33.0-51.0); Hemoglobin 11.5 g/dL (11.5-16.0); IMMATURE GRAN ABSOLUTE AUTO 0.02 K/mm3 (0.00-0.10); IMMATURE GRAN PERCENT AUTO 0 % (0-1); LYMPHOCYTES ABSOLUTE AUTO 2.45 K/mm3 (0.84-5.20); LYMPHOCYTES PERCENT AUTO 40 % (21-46); MONOCYTES ABSOLUTE AUTO 0.53 K/mm3 (0.16-1.47); MONOCYTES PERCENT AUTO 9 % (4-13); Mean Corpuscular HGB 30.4 pg (26.0-34.0); Mean Corpuscular HGB Conc 32.6 g/dL (31.5-36.5); Mean Corpuscular Volume 93 fL (80-100); Mean Platelet Volume 9.9 fL (9.1-12.4); NEUTROPHILS ABSOLUTE AUTO 2.94 K/mm3 (1.96-9.15); NEUTROPHILS PERCENT AUTO 49 % (41-73); Platelet Count 290 K/mm3 (150-400); RDW Coefficient Variation 15.9 % (11.7-14.2); RDW Standard Deviation 54.9 fL (35.1-46.3); Red Blood Cell Count 3.78 M/mm3 (3.80-5.20); White Blood Cell Count 6.06 K/mm3 (4.00-11.30)
[2024-08-21] MEDS ORDERED: Dextrose 10% 500 ML IV SCH ×2 (20:00→23:39)
[2024-08-21] MEDS ORDERED: Dextrose 50% 50 ML Vial ONE (20:01)
[2024-08-21 20:20] LABS: Alanine Aminotransfer (ALT/SGP 22 U/L (12-78); Albumin, Blood 3.1 g/dL (3.4-5.0); Albumin/Globulin Ratio 0.8 (0.8-1.8); Alk Phos 122 U/L (50-136); Anion Gap 11 mmol/L (3-11); Aspartate Aminotrans (AST/SGOT 27 U/L (12-37); Bilirubin, Direct <0.1 mg/dL (0.0-0.3); Bilirubin, Indirect Unable to Calculate mg/dL (0.1-0.7); Bilirubin, Total 0.1 mg/dL (0.1-1.0); Blood Urea Nitrogen 58 mg/dL (8-24); Bun/Creatinine Ratio 24.7 (12.0-20.0); CO2, Blood 30 mmol/L (21-32); Chloride, Blood 100 mmol/L (98-108); Creatinine, Blood 2.35 mg/dL (0.40-1.00); Globulin, Blood 3.9 g/dL (2.2-4.0); Glomerular Filtration Rate 22 (60-); Glucose, Blood 119 mg/dL (70-99); Potassium, Blood 3.6 mmol/L (3.5-5.5); Sodium, Blood 137 mmol/L (136-145)
[2024-08-21 22:40] LABS: Source, Urine Clean Catch
[2024-08-21 22:43] LABS: Bilirubin, Urine Neg (Neg); Blood, Urine 1+ (Neg); Glucose Qualitative, Urine 3+ (Neg); Ketones, Urine Neg (Neg); Leukocyte Esterase, Urine 2+ (Neg); Nitrite, Urine Neg (Neg); Protein, Urine 1+ (Neg); Specific Gravity, Urine 1.005 (1.003-1.022); Urobilinogen, Urine NORM (Normal)
[2024-08-21 22:49] LABS: Appearance, Urine Hazy (Clear); Color, Urine Yellow (P-Yellow)
[2024-08-21 22:51] LABS: Red Blood Cells, Urine 0-2 /hpf (0-2); Squamous Epithelial Cells Many /hpf (Few)
[2024-08-21 22:52] LABS: Bacteria Many /hpf
[2024-08-21] MEDS ORDERED: FLU VACC TS2024-25(6MOS UP)/PF 45 MCG/0.5 ML SYRINGE IM SCH (23:10)
[2024-08-21] MEDS ORDERED: Acetaminophen 325 MG TABLET PO ONE (23:35)
[2024-08-21] MEDS ORDERED: Acetaminophen 325 MG TABLET PO PRN (23:35)
[2024-08-21] MEDS ORDERED: Ketorolac Tromethamine 30mg Vial IV ONE (23:40)
[2024-08-22] MEDS ORDERED: TraMADol HCl 50 MG Tab PO PRN (01:10)
[2024-08-22 01:29] LABS: Adenovirus Not Detected (NOT DETECT); Bordetella pertussis Not Detected (NOT DETECT); Chlamydophila pneumoniae Not Detected (NOT DETECT); Coronavirus 229E Not Detected (NOT DETECT); Coronavirus HKU1 Not Detected (NOT DETECT); Coronavirus NL63 Not Detected (NOT DETECT); Coronavirus OC43 Not Detected (NOT DETECT); Human Metapneumovirus Not Detected (NOT DETECT); Human Rhinovirus/Enterovirus Not Detected (NOT DETECT); Influenza A/2009-H1 Not Detected (NOT DETECT); Influenza A/H1 Not Detected (NOT DETECT); Influenza A/H3 Not Detected (NOT DETECT); Influenza B Not Detected (NOT DETECT); Mycoplasma pneumoniae Not Detected (NOT DETECT); Parainfluenza Virus 1 Not Detected (NOT DETECT); Parainfluenza Virus 2 Not Detected (NOT DETECT); Parainfluenza Virus 3 Not Detected (NOT DETECT); Parainfluenza Virus 4 Not Detected (NOT DETECT); Respiratory Syncytial Virus Not Detected (NOT DETECT); SARS-Cov-2 (COVID-19), BioFire Not Detected (NOT DETECT)
[2024-08-22] MEDS ORDERED: Dextrose 50% 50 ML Vial ONE (01:34)
[2024-08-22] MEDS ORDERED: Dextrose 50% 50 ML Syringe IV ONE ×2 (01:40→08:35)
[2024-08-22 01:47] LABS: Base Excess Venous 9.9 mmol/L; Bicarbonate Venous 31.2 mmol/L (24.0-30.0); PCO2 Venous 61.5 mmHg (38-42); pH Blood Venous 7.37 (7.34-7.37)
[2024-08-22] MEDS ORDERED: Hydrocortisone Sod Succinate 100 MG Vial IV SCH (02:00)
[2024-08-22 02:10] LABS: BASOPHILS ABSOLUTE AUTO 0.03 K/mm3 (0.00-0.23); BASOPHILS PERCENT AUTO 0 % (0-2); EOSINOPHILS ABSOLUTE AUTO 0.06 K/mm3 (0.00-0.68); EOSINOPHILS PERCENT AUTO 1 % (0-6); Hematocrit 35.4 % (33.0-51.0); Hemoglobin 11.4 g/dL (11.5-16.0); IMMATURE GRAN ABSOLUTE AUTO 0.01 K/mm3 (0.00-0.10); IMMATURE GRAN PERCENT AUTO 0 % (0-1); LYMPHOCYTES ABSOLUTE AUTO 1.71 K/mm3 (0.84-5.20); LYMPHOCYTES PERCENT AUTO 20 % (21-46); MONOCYTES ABSOLUTE AUTO 0.17 K/mm3 (0.16-1.47); MONOCYTES PERCENT AUTO 2 % (4-13); Mean Corpuscular HGB 30.2 pg (26.0-34.0); Mean Corpuscular HGB Conc 32.2 g/dL (31.5-36.5); Mean Corpuscular Volume 94 fL (80-100); Mean Platelet Volume 9.6 fL (9.1-12.4); NEUTROPHILS ABSOLUTE AUTO 6.54 K/mm3 (1.96-9.15); NEUTROPHILS PERCENT AUTO 77 % (41-73); Platelet Count 288 K/mm3 (150-400); RDW Coefficient Variation 15.8 % (11.7-14.2); RDW Standard Deviation 54.4 fL (35.1-46.3); Red Blood Cell Count 3.77 M/mm3 (3.80-5.20); White Blood Cell Count 8.52 K/mm3 (4.00-11.30)
[2024-08-22 02:13] LABS: Anion Gap 11 mmol/L (3-11); Blood Urea Nitrogen 51 mg/dL (8-24); Bun/Creatinine Ratio 28.3 (12.0-20.0); CHOL/HDL RATIO 2.5; CO2, Blood 31 mmol/L (21-32); Calcium, Blood 9.1 mg/dL (8.5-10.1); Chloride, Blood 102 mmol/L (98-108); Cholesterol 221 mg/dL (50-200); Glomerular Filtration Rate 30 (60-); Glucose, Blood 51 mg/dL (70-99); HDL Cholesterol 89 mg/dL (>39); LDL/HDL RATIO 1.2; Low Density Lipoprotein Chol 109 mg/dL (0-110); Phosphorus, Blood 3.3 mg/dL (2.5-4.9); Potassium, Blood 4.7 mmol/L (3.5-5.5); Sodium, Blood 139 mmol/L (136-145); Triglycerides 114 mg/dL (30-160); Very Low Density Lipoprot Chol 22 mg/dL (6-32)
[2024-08-22] MEDS ORDERED: Dextrose 50% 50 ML Vial IV PRN (02:20)
[2024-08-22] MEDS ORDERED: Dextrose 10% 500 ML IV SCH (03:15)
[2024-08-22] MEDS ORDERED: Dextrose 10% 500 ML IV ONE (04:10)
[2024-08-22 04:36] LABS: Source, Urine Straight Cath
[2024-08-22 04:39] LABS: Bilirubin, Urine Neg (Neg); Blood, Urine Neg (Neg); Glucose Qualitative, Urine 3+ (Neg); Ketones, Urine Neg (Neg); Leukocyte Esterase, Urine 3+ (Neg); Nitrite, Urine Neg (Neg); Protein, Urine Neg (Neg); Urobilinogen, Urine NORM (Normal)
[2024-08-22 05:06] LABS: Creatinine, Urine Random 13.9 mg/dL (27.00-270.00)
[2024-08-22 05:08] LABS: Appearance, Urine Clear (Clear); Color, Urine Pale Yellow (P-Yellow)
[2024-08-22 05:10] LABS: Bacteria Many /hpf; Red Blood Cells, Urine 0-2 /hpf (0-2); Squamous Epithelial Cells Mod /hpf (Few)
[2024-08-22 05:16] LABS: Thyroid Stimulating Hormone 0.538 uIU/mL (0.360-4.800)
[2024-08-22] MEDS ORDERED: Levothyroxine Sodium 0.1 MG Tab PO SCH (06:00)
[2024-08-22] MEDS ORDERED: Enoxaparin 30 MG/0.3 ML SYR SC SCH (09:00)
[2024-08-22 14:34] VITALS: BP 156/71
[2024-08-22 16:10] VITALS: BP 139/60
--- NOTE | 2024-08-22 17:39 | NUR ---
SHIFT SUMMARY: PT A/O X4. PLEASANT AND COOPERATIVE WITH CARE. NEW ADMIT THIS AFTERNOON AROUND 1345. PT COMPLETE EGYPTIAN SPEAKING. SAP SENIOR DEVELOPER PHONE PLACED IN ROOM. PT C/O HEADACHE AND LOWER CHEST PAIN. TRAMADOL GIVEN WITH GOOD RELIEF. NO SKIN ISSUES NOTED. PM BLOOD SUGAR OF 168. CALL LIGHT IN REACH. BED IN LOWEST POSITION WITH ALARM ON.
[2024-08-22 19:36] VITALS: BP 157/79
[2024-08-22] MEDS ORDERED: Lactated Ringer's 1,000 ML IV SCH (19:50)
[2024-08-22] MEDS ORDERED: Gabapentin 100 MG Cap PO SCH (21:00)
[2024-08-23 04:02] VITALS: BP 153/67
--- NOTE | 2024-08-23 05:08 | NUR ---
SHIFT SUMMARY PT A&Ox4 AND PLEASANT. WEB USER EXPERIENCE STRATEGIST PHONE USED NEEDED. STARTED LR INFUSING AT 150ML/HR. BLOOD GLUCOSE ELEVATED ABOVE 400. DR DOUGLASS NOTIFIED AND MIDNIGHT DOSE OF HYDROCORTISONE HELD AND MEDICATION DC'd. PER DR DOUGLASS, CONTINUE TO CHECK BG Q4. IF BG REMAINS ABOVE 300 WITH 0800 GB CHECK, PT MAY NEED AN ORDER FOR LOW SLIDING SCALE INSULIN. DENIED PAIN. VS. BED ALARM ON. BED IN LOWEST POSITION AND CALL LIGHT IN REACH.
[2024-08-23 07:07] LABS: Bun/Creatinine Ratio 37.6 (12.0-20.0); Calcium, Blood 8.9 mg/dL (8.5-10.1); Creatinine, Blood 1.01 mg/dL (0.40-1.00); Potassium, Blood 3.6 mmol/L (3.5-5.5)
[2024-08-23 07:26] VITALS: BP 182/78
[2024-08-23] MEDS ORDERED: Insulin Human Lispro 100 Units/ML 3ML Syringe SC SCH ×2 (11:30→16:30)
[2024-08-23] MEDS ORDERED: Insulin Human Lispro 100 Units/ML 3ML Syringe SC ONE (12:25)
[2024-08-23 15:01] VITALS: BP 94/39
[2024-08-23 15:10] VITALS: BP 154/90
--- NOTE | 2024-08-23 17:44 | NUR ---
SHIFT SUMMARY PT A&OX4 AND ANSWERS QUESTIONS APPROPRIATELY. PT NON-MACEDONIAN SPEAKING, CAMP DIRECTOR PHONE UTELIZED. PT BLOOD SUGARS HAVE REMAINED ELEVATED, MEDICATED WITH INSULIN PER EMAR. VSS, NO COMPLAINTS OF CP/PRESSURE OR SOB. PT SPENT MOST OF SHIFT IN BED RESTING. PT REPOSITIONED INDEPENDENTLY. NO ACUTE EVENTS AT THIS TIME. PT LEFT IN A POSITION OF SAFETY WITH FALL PRECAUTIONS IN PLACE AND CALL LIGHT IN REACH.
[2024-08-23 19:00] VITALS: BP 142/55
[2024-08-23] MEDS ORDERED: Insulin Glargine-Yfgn 100 Unit/mL 3 ML SYR SC SCH (21:00)
[2024-08-23 22:20] VITALS: BP 132/45
[2024-08-24 04:44] VITALS: BP 139/54
--- NOTE | 2024-08-24 05:56 | NUR ---
BOOK REPAIRER SUMMARY NO ACUTE ISSUES OVERNIGHT. PTS BLOOD SUGARS REMAINED STABLE (163, 155). SHE HAS DENIED ANY DIZZINESS OR WEAKNESS.
[2024-08-24 07:49] VITALS: BP 177/72
[2024-08-24] MEDS ORDERED: Insulin Glargine-Yfgn 100 Unit/mL 3 ML SYR SC SCH (09:00)
[2024-08-24 09:43] LABS: SERUM, C-PEPTIDE <0.1 ng/mL (0.5-3.3)
[2024-08-24] MEDS ORDERED: Insulin Human Lispro 100 Units/ML 3ML Syringe SC SCH (11:30)
--- NOTE | 2024-08-24 16:44 | NUR ---
REPORT RECEIVED VERIFIED PT INDEPENDANT IN ROOM, FSBS WNL, PT ABLE [place] NEEDS KNOWN. PT WOULD LIKE TO GO HOME TODAY, IS AWAITING FOR MD TO ARRIVE.
--- NOTE | 2024-08-24 16:45 | NUR ---
1500 ORDERS FOR DISCHARGE RECEIVED AND IMPLEMENTED, DAUGHTER AND PT EXPRESS UNDERSTANDING AND VERBALIZED PLAN FOR FUTURE MONITORONG OF BLOOD SUGAR.
[2024-08-25] MEDS ORDERED: Enoxaparin 40 MG/0.4 ML SYR SC SCH (09:00)
[2024-08-25 09:55] LABS: INSULIN FREE 36 uIU/mL (3-25); TOTAL INSULIN 48 uIU/mL (3-25)
[2024-08-27 07:59] LABS: CORTISOL, FREE BY ED/LC-MS/MS 0.35 ug/dL
== END 2024-08-24 14:49 | disposition home or self-care (01) | DRG 639 ==
LOC: ER 19:17 → ERHOLD 23:05 → MEDS 08-22 13:34
PROVIDERS: Family Medicine; Student in an Organized Health Care Education/Training Program; ADMIT Student in an Organized Health Care Education/Training Program
DX: E11.649 Type 2 diabetes mellitus with hypoglycemia without coma (principal); N17.9 Acute kidney failure, unspecified; I12.9 Hypertensive chronic kidney disease with stage 1 through stage 4 chronic kidney disease, or unspecified chronic kidney disease; E11.22 Type 2 diabetes mellitus with diabetic chronic kidney disease; E78.5 Hyperlipidemia, unspecified; K21.9 Gastro-esophageal reflux disease without esophagitis; E03.9 Hypothyroidism, unspecified; R07.89 Other chest pain; R59.0 Localized enlarged lymph nodes; N18.2 Chronic kidney disease, stage 2 (mild); Z79.4 Long term (current) use of insulin; Z90.49 Acquired absence of other specified parts of digestive tract; Z79.890 Hormone replacement therapy; Z79.899 Other long term (current) drug therapy; Z79.84 Long term (current) use of oral hypoglycemic drugs
CPT/HCPCS: 0202U; 36415; 71045; 76770; 80048; 80061; 80069; 80076; 81001; 82140; 82530; 82533; 82570; 82803; 82947; 83036; 83525; 83527; 83880; 84145; 84300; 84443; 84484; 84681; 85025; 87077; 87086; 87186; 96361; 96372-59; 96374; 96375; 96376; 99285-25; A9270; G0378; J1650; J1720; J1815; J7120; J7799

== ENCOUNTER 2025-02-05 08:43 | Inpatient (IN) | payer MEDICARE, OTHER ==
[~2025-02-05] VITALS: Ht 144.8 cm; Wt 60.6 kg
[2025-02-05] VITALS (18 sets, daily range): BP systolic 101–132; BP diastolic 42–70
[~2025-02-05 08:43] MED LIST changes: +FUROSEMIDE20 MG PO; +JARDIANCE10 MG PO; +METFORMIN HCL500 M3 PO; +OMEP20ER PO; +TIZANIDINE HCL2 M4 PO; +ZESTRIL40 M2 PO
[2025-02-05] MEDS ORDERED: Ondansetron HCl 2 MG / ML 2ML Vial IV ONE ×2 (09:25→09:55)
[2025-02-05 09:38] LABS: BASOPHILS ABSOLUTE AUTO 0.03 K/mm3 (0.00-0.23); BASOPHILS PERCENT AUTO 0 % (0-2); EOSINOPHILS ABSOLUTE AUTO 0.01 K/mm3 (0.00-0.68); EOSINOPHILS PERCENT AUTO 0 % (0-6); Hematocrit 33.3 % (33.0-51.0); Hemoglobin 10.1 g/dL (11.5-16.0); IMMATURE GRAN ABSOLUTE AUTO 0.03 K/mm3 (0.00-0.10); IMMATURE GRAN PERCENT AUTO 0 % (0-1); LYMPHOCYTES ABSOLUTE AUTO 1.45 K/mm3 (0.84-5.20); LYMPHOCYTES PERCENT AUTO 21 % (21-46); MONOCYTES PERCENT AUTO 10 % (4-13); Mean Corpuscular HGB 29.4 pg (26.0-34.0); Mean Corpuscular HGB Conc 30.3 g/dL (31.5-36.5); Mean Corpuscular Volume 97 fL (80-100); Mean Platelet Volume 10.7 fL (9.1-12.4); NEUTROPHILS ABSOLUTE AUTO 4.79 K/mm3 (1.96-9.15); NEUTROPHILS PERCENT AUTO 68 % (41-73); Platelet Count 394 K/mm3 (150-400); RDW Coefficient Variation 18.3 % (11.7-14.2); RDW Standard Deviation 65.1 fL (35.1-46.3); Red Blood Cell Count 3.44 M/mm3 (3.80-5.20); White Blood Cell Count 7.01 K/mm3 (4.00-11.30)
[2025-02-05] MEDS ORDERED: NS 1,000 ML IV SCH (09:55)
[2025-02-05 09:59] LABS: Albumin, Blood 2.9 g/dL (3.4-5.0); Albumin/Globulin Ratio 0.8 (0.8-1.8); Bilirubin, Total 0.8 mg/dL (0.1-1.0); Bun/Creatinine Ratio 25.5 (12.0-20.0); Calcium, Blood 8.8 mg/dL (8.5-10.1); Creatinine, Blood 1.06 mg/dL (0.40-1.00); Globulin, Blood 3.7 g/dL (2.2-4.0); Total Protein, Blood 6.6 g/dL (6.4-8.2)
[2025-02-05] MEDS ORDERED: Insulin Human Regular 100 UNIT in NS 100 ML IV SCH (10:10)
[2025-02-05] MEDS ORDERED: Lactated Ringer's 1,000 ML IV SCH (11:30)
[2025-02-05 11:43] LABS: Beta-hydroxybutyrate 127.3 mg/dL (0.2-2.8)
[2025-02-05 12:17] LABS: Source, Urine Clean Catch
[2025-02-05 12:27] LABS: Appearance, Urine Clear (Clear); Bilirubin, Urine Neg (Neg); Blood, Urine Neg (Neg); Glucose Qualitative, Urine 4+ (Neg); Ketones, Urine 4+ (Neg); Leukocyte Esterase, Urine Neg (Neg); Nitrite, Urine Neg (Neg); Protein, Urine Neg (Neg); Urobilinogen, Urine NORM (Normal)
[2025-02-05 12:42] LABS: Color, Urine Pale Yellow (P-Yellow)
--- NOTE | 2025-02-05 14:06 | NUR ---
ASSUMING CARE OF PT 1350. INSULIN GTT 5.8 UNIT/HR. 4 EYES SKIN CHECK COMPLETED
[2025-02-05 14:49] LABS: Bun/Creatinine Ratio 25.9 (12.0-20.0); Calcium, Blood 8.4 mg/dL (8.5-10.1); Creatinine, Blood 1.08 mg/dL (0.40-1.00); Potassium, Blood 3.5 mmol/L (3.5-5.5)
[2025-02-05] MEDS ORDERED: Potassium Chloride 20 MEQ in Sodium Chloride 0.45% 1,000 ML IV SCH (15:30)
[2025-02-05 15:47] LABS: Source, Urine Straight Cath
[2025-02-05 16:01] LABS: Appearance, Urine Clear (Clear); Bilirubin, Urine Neg (Neg); Blood, Urine Neg (Neg); Glucose Qualitative, Urine 4+ (Neg); Ketones, Urine 4+ (Neg); Leukocyte Esterase, Urine Neg (Neg); Nitrite, Urine Neg (Neg); Protein, Urine 1+ (Neg); Specific Gravity, Urine 1.015 (1.003-1.022); Urobilinogen, Urine NORM (Normal)
[2025-02-05 16:29] LABS: CORONAVIRUS COVID-19 AG Negative (NEGATIVE); INFLUENZA A AG Negative (NEGATIVE); INFLUENZA B AG Negative (NEGATIVE)
[2025-02-05 16:32] LABS: Color, Urine Pale Yellow (P-Yellow)
--- NOTE | 2025-02-05 16:35 | NUR ---
"Spiritual Care Vist | Pt. is Citizen Of [place] speaking Pt. is awake in bed. A bi-lingual family is at bedside and welcomes my visit. After introductions, it is affirmed that the Pt. is from a Protestant tradition. With the assistance of the family member interpreting this cigar tobacco processing supervisor prayed for the Pt. after she welcomed it. Pt. displayed evidence of being pleased with the Prayer. Will remain available to Pt. and family."
[2025-02-05 18:33] LABS: Bun/Creatinine Ratio 22.9 (12.0-20.0); Calcium, Blood 8.5 mg/dL (8.5-10.1); Creatinine, Blood 1.09 mg/dL (0.40-1.00)
[2025-02-05] MEDS ORDERED: Potassium Chloride 40 MEQ in NS 250 ML IV STA (18:48)
--- NOTE | 2025-02-05 18:52 | NUR ---
SHIFT SUMMARY PT ADMITTED TO ICU APPROX 1400. NEURO: PT ALERT AND ORIENTED TO PERSON, PLACE AND SITUATION BUT DISORIENTED TO TIME. PT REPORTS BASELINE BLURRY VISION - CURRENTLY RECIEVING INJECTIONS IN BILAT EYES. MOVES EXTREMTIES WELL BUT VERY WEAK. FOLLOWS COMMANDS. VSS ON RA. SR HR 80S. SBP 110-120S. GI: ABOD IS SOFT +NAUSEA, OCONNOR AND ABDO PAIN WHEN ARRIVED. THIS RESOLVED BY 1600. DENIES ANY NAUSEA OR ABDO PAIN. : UP TO COMMODE 2 PERSON ASSIST, PT CONTINENT OF URINE. URINE CLEAR/YELLOW. URINE COLLECTED PER ORDER. ON INSULIN GTT, NO CHANGED TO DOSE CURRENTLY AT 5.8U/HR. BG 360 AT 1817. LABS LAST DRAWN AT 1800. NEW ORDER RECIEVED OF KCL 40MEQ, AWAITING DELIEVERY FROM PHARMACY. PT SPEAKS SLOVENIAN, USED NUCLEAR LOGGING ENGINEER VIA TELEPHONE, PT TOLERATED WELL. DAUGHTER ALSO INTO VISIT AND ASSISTED WITH TRANSLATING AT TIMES.
--- NOTE | 2025-02-05 20:39 | NUR ---
PT UPDATE: CALL MADE TO TIFFANIE TO OBTAIN ORDERS FOR FURTHER TX BASED ON PTS CURRENT BLOOD SUGARS/LABS. ORDERS OBTAINED FOR D51/2NS, SEE EMAR, AND BMP DUE AT 2330.
[2025-02-05] MEDS ORDERED: D5W-1/2NS 1,000 ML IV SCH (20:40)
[2025-02-05] MEDS ORDERED: NS 250 ML IV PRN (21:00)
[2025-02-06] VITALS (32 sets, daily range): BP systolic 121–168; BP diastolic 47–74
[2025-02-06 00:04] LABS: Bun/Creatinine Ratio 23.1 (12.0-20.0); Calcium, Blood 8.3 mg/dL (8.5-10.1); Creatinine, Blood 1.04 mg/dL (0.40-1.00); Magnesium, Blood 1.6 mg/dL (1.6-2.4); Potassium, Blood 3.6 mmol/L (3.5-5.5)
[2025-02-06] MEDS ORDERED: Potassium Phosphate Dibasic 30 MM in Dextrose 5% 500 ML IV ONE (00:45)
[2025-02-06 02:40] LABS: BASOPHILS ABSOLUTE AUTO 0.03 K/mm3 (0.00-0.23); BASOPHILS PERCENT AUTO 0 % (0-2); EOSINOPHILS ABSOLUTE AUTO 0.15 K/mm3 (0.00-0.68); EOSINOPHILS PERCENT AUTO 2 % (0-6); Hematocrit 28.8 % (33.0-51.0); Hemoglobin 9.6 g/dL (11.5-16.0); IMMATURE GRAN ABSOLUTE AUTO 0.04 K/mm3 (0.00-0.10); IMMATURE GRAN PERCENT AUTO 1 % (0-1); LYMPHOCYTES ABSOLUTE AUTO 2.13 K/mm3 (0.84-5.20); LYMPHOCYTES PERCENT AUTO 25 % (21-46); MONOCYTES ABSOLUTE AUTO 0.82 K/mm3 (0.16-1.47); MONOCYTES PERCENT AUTO 9 % (4-13); Mean Corpuscular HGB 29.2 pg (26.0-34.0); Mean Corpuscular HGB Conc 33.3 g/dL (31.5-36.5); Mean Platelet Volume 9.5 fL (9.1-12.4); NEUTROPHILS ABSOLUTE AUTO 5.53 K/mm3 (1.96-9.15); NEUTROPHILS PERCENT AUTO 64 % (41-73); Platelet Count 325 K/mm3 (150-400); RDW Coefficient Variation 17.3 % (11.7-14.2); RDW Standard Deviation 54.7 fL (35.1-46.3); Red Blood Cell Count 3.29 M/mm3 (3.80-5.20)
[2025-02-06 02:47] LABS: Mean Corpuscular Volume 88 fL (80-100)
[2025-02-06 02:56] LABS: Bun/Creatinine Ratio 22.8 (12.0-20.0); Calcium, Blood 8.3 mg/dL (8.5-10.1); Creatinine, Blood 0.92 mg/dL (0.40-1.00); Magnesium, Blood 1.7 mg/dL (1.6-2.4); Phosphorus, Blood 2.9 mg/dL (2.5-4.9); Potassium, Blood 3.9 mmol/L (3.5-5.5)
[2025-02-06] MEDS ORDERED: Omeprazole 20 MG CapCR PO SCH (06:00)
--- NOTE | 2025-02-06 06:50 | NUR ---
SHIFT SUMMARY: PT A&OX3,DISORIENTED TO TIME. PT IS PRIMARILY SENEGALESE SPEAKER, ABLE TO HOLD SIMPLE CONVERSATION WITH THIS RN AND MAKE NEEDS KNOWN. PT ON RA WHEN AWAKE, SATS >95%. PT PLACED ON 1L 02 VIA NC WHILE ASLEEP SHE DESATS INTO 80S. LUNGS CLEAR T/O. HR 80S,SINUS. SBP 110S-130S. ABD SLIGHTLY DISTENDED, SOFT TO PALPATION. PT ABLE TO USE BEDSIDE COMMODE TO VOID, W/STAND-BY ASSIST. PT HAS POWERGLIDE IN ZOILA AND 20G PERIPHERAL IV IN RFA. INSULIN RUNNINING AT 1.1 U/HR W/NS TKO.ALSO RUNNING D51/2NS AT 100ML/HR. THIS RN TO REPORT TO ONCOMING RN.
[2025-02-06 07:15] LABS: Bun/Creatinine Ratio 22.6 (12.0-20.0); Calcium, Blood 7.5 mg/dL (8.5-10.1); Creatinine, Blood 0.84 mg/dL (0.40-1.00); Potassium, Blood 4.4 mmol/L (3.5-5.5)
[2025-02-06] MEDS ORDERED: Insulin Glargine-Yfgn 100 Unit/mL 3 ML SYR SC ONE (08:00)
[2025-02-06] MEDS ORDERED: Calcium Chloride 10% 1,000 MG in NS 50 ML IV ONE (08:15)
[2025-02-06] MEDS ORDERED: Enoxaparin 40 MG/0.4 ML SYR SC SCH (09:00)
--- NOTE | 2025-02-06 09:19 | NUR ---
THIS RN ASSUMED CARE OF PT AT 0700. PT IS ALERT AND ORIENTED X4, FOLLOWS COMMANDS, PT DAUGHTER AT BEDSIDE TO HELP TRANSLATE PT IS ONLY [place]ICAR[place] SPEAKING. PT HEART RATE IN THE 80s, PT DENIES CHEST PAIN, BLOOD PRESSURE STABLE AT 138/65. PT SOUNDS CLEAR/DIMINISHED, ON ROOM AIR SATTING >95%, PT DENIES SHORTNESS OF BREATH. PT IS HAVING SOME EPIGASTRIC PAIN, HAS BEEN NOTIFIED. PT IS BEING TRANSITIONED OFF THE INSULIN DRIP AND STARTED ON LONG ACTING. NO OTHER INTERVENTIONS AT THIS TIME. PLAN OF CARE CONTINUED.
[2025-02-06] MEDS ORDERED: Insulin Regular 100 UNIT/ML 10ML Vial SC SCH (11:30)
[2025-02-06] MEDS ORDERED: Mag Hydrox/Al Hydrox/Simeth 18 ML,Lidocaine 2% Viscous Soln 9 ML,Atropine/Scopalam/Hyos... PO PRN (13:15)
--- NOTE | 2025-02-06 14:52 | NUR ---
PT UPDATE PT IS BEING TRANSFERED TO MEDICAL FLOOR ROOM 324, PT FAMILY IS AWARE.
--- NOTE | 2025-02-06 15:41 | NUR ---
TRANSFER NOTE PATIENT TRANSFERRED FROM ICU 11. ON 1L NC PRIMARILY FOR COMOFRT. STAND PIVOT FROM WHEELCHAIR TO CHAIR. CHAIR ALARM ON. LATVIAN SPEAKING ONLY. DAUGHTER AT BEDISDE TO TRANSITION TO ROOM. WATER PROVIDED. VITALS TAKEN. TELE LEADS REMOVED FROM ICU.
[2025-02-07 03:15] VITALS: BP 160/80
[2025-02-07 06:06] LABS: BASOPHILS ABSOLUTE AUTO 0.01 K/mm3 (0.00-0.23); BASOPHILS PERCENT AUTO 0 % (0-2); EOSINOPHILS ABSOLUTE AUTO 0.11 K/mm3 (0.00-0.68); EOSINOPHILS PERCENT AUTO 2 % (0-6); Hemoglobin 9.9 g/dL (11.5-16.0); IMMATURE GRAN ABSOLUTE AUTO 0.01 K/mm3 (0.00-0.10); IMMATURE GRAN PERCENT AUTO 0 % (0-1); LYMPHOCYTES ABSOLUTE AUTO 1.76 K/mm3 (0.84-5.20); LYMPHOCYTES PERCENT AUTO 39 % (21-46); MONOCYTES ABSOLUTE AUTO 0.46 K/mm3 (0.16-1.47); MONOCYTES PERCENT AUTO 10 % (4-13); Mean Corpuscular HGB 29.2 pg (26.0-34.0); Mean Corpuscular Volume 89 fL (80-100); Mean Platelet Volume 10.1 fL (9.1-12.4); NEUTROPHILS ABSOLUTE AUTO 2.22 K/mm3 (1.96-9.15); NEUTROPHILS PERCENT AUTO 49 % (41-73); Platelet Count 288 K/mm3 (150-400); RDW Coefficient Variation 17.8 % (11.7-14.2); RDW Standard Deviation 57.3 fL (35.1-46.3); Red Blood Cell Count 3.39 M/mm3 (3.80-5.20); White Blood Cell Count 4.57 K/mm3 (4.00-11.30)
[2025-02-07 06:30] LABS: Bun/Creatinine Ratio 19.7 (12.0-20.0); Calcium, Blood 8.1 mg/dL (8.5-10.1); Creatinine, Blood 0.81 mg/dL (0.40-1.00); Potassium, Blood 4.4 mmol/L (3.5-5.5)
[2025-02-07 07:37] VITALS: BP 158/67
[2025-02-07] MEDS ORDERED: Insulin Human Lispro 100 Units/ML 3ML Syringe SC SCH ×2 (08:05→11:30)
[2025-02-07] MEDS ORDERED: Insulin Glargine-Yfgn 100 Unit/mL 3 ML SYR SC SCH (09:00)
--- NOTE | 2025-02-07 12:19 | NUR ---
Called and spoke with daughter, Portia, discussed the need for a glucometer with lancets and strips for at home until Kayleen can see her PCP to get a new Freestyle Christa. Daughter stated she understands her mother's Freestyle Christa has not been working, and verbalized understanding of importance to monitor blood glucose levels with working machine. Patients daughter stated she does have a glucometer at home and would need to bead picker the strips and lancets at the store. She had no further questions.
[2025-02-07] MEDS ORDERED: BASAGLAR K100 UNIT/3 SC (14:05)
--- NOTE | 2025-02-07 15:41 | NUR ---
DISCHARGE: PT D/C @ 1423 VIA WHEELCHAIR WITH DAUGHTER. EDUCATION PROVIDED TO PATIENT USING EDUCATION OFFICER PHONE WELL TO THE DAUGHTER. NEW INSULIN GLARGINE FAXED TO [facility]. DAUGHTER AND PT AWARE TO NOT USE FREESTYLE INSULIN READER UNTIL SEEN BY PCP. DAUGHTER OF PT STATES THEY HAVE GLUCOMETER, LANCETS, AND TEST STRIPS AT HOME. PT FORGOT WALKER AT TIME OF D/C. CUSTOMER ACCOUNT REPRESENTATIVE CALLED AND SPOKE WITH DAUGHTER STATING SHE WOULD COME BACK TO CHIEF OF SAFETY AND PROTECTION WALKER. POWERGLIDE AND IV REMOVED W/O COMPLICATIONS.
== END 2025-02-07 14:23 | disposition home health service (06) | DRG 638 ==
LOC: ER 08:43 → ICUE 08:44 → MEDS 02-06 15:07 → ICUE 02-06 15:08 → MEDS 02-06 15:08 → ICUE 02-06 15:08 → MEDS 02-06 16:17
PROVIDERS: Emergency Medicine; Internal Medicine; ADMIT Internal Medicine
DX: E11.10 Type 2 diabetes mellitus with ketoacidosis without coma (principal); E87.1 Hypo-osmolality and hyponatremia; E78.5 Hyperlipidemia, unspecified; K21.9 Gastro-esophageal reflux disease without esophagitis; E03.9 Hypothyroidism, unspecified; I12.9 Hypertensive chronic kidney disease with stage 1 through stage 4 chronic kidney disease, or unspecified chronic kidney disease; E11.22 Type 2 diabetes mellitus with diabetic chronic kidney disease; N18.30 Chronic kidney disease, stage 3 unspecified; Z79.4 Long term (current) use of insulin; Z90.49 Acquired absence of other specified parts of digestive tract; Z79.82 Long term (current) use of aspirin; Z79.899 Other long term (current) drug therapy; Z79.890 Hormone replacement therapy
CPT/HCPCS: 36415; 71045; 74177; 80048; 80053; 81003; 82010; 82330; 82947; 83735; 83930; 84100; 85025; 87428-QW; 93005; 93010; 96361; 96365; 96366; 96372; 96374-59; 96375; 96375-59; 96376; 97110; 97162; 97530; 99285-25; A9270; C1751; G0378; J1650; J1815; J2405; J3480; J7030; J7042; J7050; J7060; J7120; Q9967

== ENCOUNTER → 2025-02-14 | Outpatient (CLI) | payer MEDICARE ==
[~2025-02-14] MED LIST changes: +BASAGLAR K100 UNIT/3 SC
[2025-02-14 18:54] LABS: Bacterial Vaginosis PCR Negative (NEGATIVE); Candida Group, PCR NOT DETECTED (NOT DETECT)
[2025-02-14 19:41] LABS: Candida glabrata-krusei, PCR DETECTED (NOT DETECT)
== END ==
LOC: LAB SHORT 15:30 → LAB 15:30
PROVIDERS: Student in an Organized Health Care Education/Training Program
DX: R30.0 Dysuria (principal); N89.8 Other specified noninflammatory disorders of vagina
CPT/HCPCS: 81515; 87077; 87086; 87186

== ENCOUNTER → 2025-02-28 | Outpatient (CLI) | payer MEDICARE, OTHER | LOC: LAB 11:08 → LAB SHORT 11:08 | DX: E11.8 Type 2 diabetes mellitus with unspecified complications (principal) | CPT/HCPCS: 82043 ==

== ENCOUNTER 2025-03-20 22:08 | Inpatient (IN) | payer MEDICARE, OTHER ==
[~2025-03-20] VITALS: Ht 162.6 cm; Wt 68.1 kg
[2025-03-20 22:55] LABS: BASOPHILS ABSOLUTE AUTO 0.04 K/mm3 (0.00-0.23); BASOPHILS PERCENT AUTO 1 % (0-2); EOSINOPHILS ABSOLUTE AUTO 0.18 K/mm3 (0.00-0.68); EOSINOPHILS PERCENT AUTO 4 % (0-6); Hematocrit 29.6 % (33.0-51.0); Hemoglobin 9.2 g/dL (11.5-16.0); IMMATURE GRAN PERCENT AUTO 0 % (0-1); LYMPHOCYTES ABSOLUTE AUTO 1.73 K/mm3 (0.84-5.20); LYMPHOCYTES PERCENT AUTO 37 % (21-46); MONOCYTES ABSOLUTE AUTO 0.58 K/mm3 (0.16-1.47); MONOCYTES PERCENT AUTO 12 % (4-13); Mean Corpuscular HGB 28.8 pg (26.0-34.0); Mean Corpuscular HGB Conc 31.1 g/dL (31.5-36.5); Mean Corpuscular Volume 93 fL (80-100); Mean Platelet Volume 9.6 fL (9.1-12.4); NEUTROPHILS ABSOLUTE AUTO 2.19 K/mm3 (1.96-9.15); NEUTROPHILS PERCENT AUTO 46 % (41-73); Platelet Count 378 K/mm3 (150-400); RDW Coefficient Variation 16.8 % (11.7-14.2); RDW Standard Deviation 57.7 fL (35.1-46.3); Red Blood Cell Count 3.19 M/mm3 (3.80-5.20); White Blood Cell Count 4.72 K/mm3 (4.00-11.30)
[2025-03-20 23:23] LABS: Albumin, Blood 3.1 g/dL (3.4-5.0); Albumin/Globulin Ratio 0.8 (0.8-1.8); Bilirubin, Total 0.3 mg/dL (0.1-1.0); Bun/Creatinine Ratio 21.8 (12.0-20.0); Calcium, Blood 8.6 mg/dL (8.5-10.1); Creatinine, Blood 1.01 mg/dL (0.40-1.00); Globulin, Blood 4.1 g/dL (2.2-4.0); Magnesium, Blood 2.2 mg/dL (1.6-2.4); Potassium, Blood 3.8 mmol/L (3.5-5.5); Thyroid Stimulating Hormone 5.3 uIU/mL (0.360-4.800); Total Protein, Blood 7.2 g/dL (6.4-8.2)
[2025-03-21] MEDS ORDERED: Furosemide 10 MG/ML 4ML Vial IV ONE (03:30)
[2025-03-21] MEDS ORDERED: Acetaminophen 325 MG TABLET PO PRN (04:30)
[2025-03-21] MEDS ORDERED: Ondansetron HCl 2 MG / ML 2ML Vial IV PRN (04:30)
[2025-03-21 05:18] LABS: BASOPHILS ABSOLUTE AUTO 0.04 K/mm3 (0.00-0.23); BASOPHILS PERCENT AUTO 1 % (0-2); EOSINOPHILS ABSOLUTE AUTO 0.22 K/mm3 (0.00-0.68); EOSINOPHILS PERCENT AUTO 5 % (0-6); Hemoglobin 8.4 g/dL (11.5-16.0); IMMATURE GRAN PERCENT AUTO 0 % (0-1); LYMPHOCYTES ABSOLUTE AUTO 1.75 K/mm3 (0.84-5.20); LYMPHOCYTES PERCENT AUTO 41 % (21-46); MONOCYTES PERCENT AUTO 16 % (4-13); Mean Corpuscular HGB 28.9 pg (26.0-34.0); Mean Corpuscular HGB Conc 31.1 g/dL (31.5-36.5); Mean Corpuscular Volume 93 fL (80-100); Mean Platelet Volume 9.2 fL (9.1-12.4); NEUTROPHILS ABSOLUTE AUTO 1.58 K/mm3 (1.96-9.15); NEUTROPHILS PERCENT AUTO 37 % (41-73); Platelet Count 351 K/mm3 (150-400); RDW Coefficient Variation 16.8 % (11.7-14.2); RDW Standard Deviation 57.5 fL (35.1-46.3); Red Blood Cell Count 2.91 M/mm3 (3.80-5.20); White Blood Cell Count 4.29 K/mm3 (4.00-11.30)
[2025-03-21 05:56] LABS: Free Thyroxine 1.06 ng/dL (0.70-1.60); Magnesium, Blood 2.2 mg/dL (1.6-2.4)
[2025-03-21 05:59] LABS: Albumin/Globulin Ratio 0.8 (0.8-1.8); Bilirubin, Total 0.3 mg/dL (0.1-1.0); Bun/Creatinine Ratio 21.8 (12.0-20.0); Calcium, Blood 8.8 mg/dL (8.5-10.1); Creatinine, Blood 0.96 mg/dL (0.40-1.00); Globulin, Blood 3.6 g/dL (2.2-4.0); Potassium, Blood 3.3 mmol/L (3.5-5.5); Total Protein, Blood 6.6 g/dL (6.4-8.2)
[2025-03-21] MEDS ORDERED: Levothyroxine Sodium 0.1 MG Tab PO SCH (06:00)
[2025-03-21] MEDS ORDERED: Omeprazole 20 MG CapCR PO SCH (06:00)
[2025-03-21] MEDS ORDERED: Dextrose 50% 50 ML Syringe IV PRN (06:05)
--- NOTE | 2025-03-21 07:18 | NUR ---
ASSUMPTION NOTE: THIS RN TO ASSUME CARE OF PATIENT. PATIENT IN ROOM DENIED ANY CHEST PAIN/PRESSURE. VITAL SIGNS TAKEN AND PATIENT STABLE. HAS CALL LIGHT WITHIN REACH, BED IN LOWEST POSIITON & STATING NOTHING ELSE IS NEEDED AT THIS TIME.
[2025-03-21 07:19] VITALS: BP 167/69
[2025-03-21] MEDS ORDERED: Insulin Human Lispro 100 Units/ML 3ML Syringe SC SCH (07:30)
[2025-03-21] MEDS ORDERED: Potassium Chloride 20 MEQ TabCR PO SCH (08:00)
[2025-03-21] MEDS ORDERED: Lisinopril 20 MG Tab PO SCH (09:00)
[2025-03-21] MEDS ORDERED: Enoxaparin 40 MG/0.4 ML SYR SC SCH (09:00)
[2025-03-21] MEDS ORDERED: Aspirin 81 MG Chew PO SCH (09:00)
[2025-03-21] MEDS ORDERED: Furosemide 10 MG / ML 2ML Vial IV SCH (09:00)
[2025-03-21 11:52] VITALS: BP 157/73
[2025-03-21 13:45] LABS: Percent Saturation 6.3 % (15.0-50.0)
[2025-03-21 16:05] VITALS: BP 156/69
[2025-03-21] MEDS ORDERED: Iron Dextran 50 MG / ML 2ML Vial IV ONE (16:55)
--- NOTE | 2025-03-21 17:49 | NUR ---
SHIFT SUMMARY: PATIENT IS ALERT AND ORIENTED X4 & COOPERATIVE WITH HER IS ABLE TO MAKE NEEDS KNOWN. PATIENT IS ON TELE SHOWING SINUS RYTHM WITH RATE IN 80'S. SATTING >92% ON ROOM AIR. DENIED FEELING SHORT OF BREATH THORUGHOUT SHIFT. DAUGHTER WAS AT BEDSIDE THROUGHOUT SHIFT. AN ECHO WAS DONE ALONG WITH A VENOUS DUPLEX ULTRSOUND OF THE LEFT LEG, RESULTS ARE IN THE CHART. PATIENT IS INDEPENDENT IN THE ROOM AND REMINDED TO ALLOW US TO CHART HER OUTPUT. PATIENT RECEIVED IRON TODAY AND TO GET A IRON INFUSION AFTER THE ALLOTTED TEST TIME. BLOOD SUGARS WRE LEVATED THORUGHOUT SHIFT AND WAS COVERED VIA INSULIN. HOME MEDICAITONS WRE RESTARTED ALONG WITH OTHER MEDICAITONS. PATIENT IS EATING DINNER,HAS CALL LIGHT WITHIN REACH, BED IN LOWEST POSITION AND STATING NOTHING ELSE IS NEEDED AT THIS TIME.
[2025-03-21] MEDS ORDERED: Iron Dextran 975 MG in NS 250 ML IV ONE (18:00)
[2025-03-21 19:51] VITALS: BP 157/71
[2025-03-21] MEDS ORDERED: Insulin Glargine-Yfgn 100 Unit/mL 3 ML SYR SC SCH ×2 (21:00)
[2025-03-21] MEDS ORDERED: Gabapentin 100 MG Cap PO SCH (21:00)
[2025-03-21 23:47] VITALS: BP 170/67
--- NOTE | 2025-03-22 04:36 | NUR ---
SHIFT SUMMARY PATIENT HAS APPEARED TO REST COMFORTABLY SINCE BEING TRASFERED FROM PCU. IRON INFUSED WITHOUT COMPLICATIONS. PATIENT IS ORIENTED X4. SHE AMBULATED INDEPENDANTLY AND DENIES PAIN. PATIENT HAS HER CALL LIGHT WITHIN REACH AND HAS BEEN INSTRUCTED TO CALL WITH ANY REQUESTS OR NEEDS.
[2025-03-22 04:44] VITALS: BP 153/68
[2025-03-22 06:22] LABS: Hematocrit 28.6 % (33.0-51.0); Mean Corpuscular HGB 28.8 pg (26.0-34.0); Mean Corpuscular HGB Conc 31.5 g/dL (31.5-36.5); Mean Corpuscular Volume 92 fL (80-100); Mean Platelet Volume 9.7 fL (9.1-12.4); Platelet Count 354 K/mm3 (150-400); RDW Coefficient Variation 16.6 % (11.7-14.2); RDW Standard Deviation 55.7 fL (35.1-46.3); Red Blood Cell Count 3.12 M/mm3 (3.80-5.20)
[2025-03-22 06:32] LABS: Bun/Creatinine Ratio 23.9 (12.0-20.0); Calcium, Blood 8.7 mg/dL (8.5-10.1); Creatinine, Blood 0.88 mg/dL (0.40-1.00); Potassium, Blood 3.5 mmol/L (3.5-5.5)
[2025-03-22] MEDS ORDERED: Insulin Human Lispro 100 Units/ML 3ML Syringe SC SCH (07:30)
[2025-03-22 07:33] VITALS: BP 168/81
[2025-03-22] MEDS ORDERED: Empagliflozin 10 MG TAB PO SCH (09:00)
[2025-03-22 12:05] VITALS: BP 164/66
--- NOTE | 2025-03-22 16:28 | NUR ---
SHIFT SUMMARY NO ACUTE CHANGES TODAY. CONTINUING TO DIURESE PT. BILAT LOWER EXT EDEMA IMPROVING. PT INDEP IN ROOM. USING CHANNEL ACCOUNT MANAGER PHONE PT IS ALBANIAN SPEAKING ONLY. FAMILY AT BEDSIDE FOR SUPPORT. POSSIBLE DISCHARGE HOME TOMORROW. CALL LIGHT WITHIN REACH.
[2025-03-22 18:10] VITALS: BP 159/86
[2025-03-22 21:00] VITALS: BP 179/79
[2025-03-22] MEDS ORDERED: Insulin Glargine-Yfgn 100 Unit/mL 3 ML SYR SC SCH (21:00)
[2025-03-23] VITALS (7 sets, daily range): BP systolic 138–179; BP diastolic 61–87
--- NOTE | 2025-03-23 04:29 | NUR ---
SHIFT SUMMARY UMESH WAS ALERT AND FULLY ORIENTED ON ASSESSMENT. PT SEEMS TO BE DOING VERY WELL. PT DENIES ALL PAIN, DENIES SOB, DENIES N/V/D. NO ACUTE EVENTS VSS. PT RESTING COMFORTABLY WITH NO COMPLAINTS OR REQUESTS OF ANY KIND.
[2025-03-23 06:07] LABS: Bun/Creatinine Ratio 23.2 (12.0-20.0); Calcium, Blood 9.2 mg/dL (8.5-10.1); Creatinine, Blood 0.86 mg/dL (0.40-1.00); Potassium, Blood 4.6 mmol/L (3.5-5.5)
[2025-03-23] MEDS ORDERED: Furosemide 40 MG Tab PO SCH (09:00)
[2025-03-23] MEDS ORDERED: Metoprolol Succinate 25 MG TABCR PO SCH (11:00)
--- NOTE | 2025-03-23 11:50 | NUR ---
LATE ENTRY: 829: DR. SARAH WRAY AT BEDSIDE. HOT DIMPLING MACHINE OPERATOR PHONE USED DUE TO PATIENT SPEAKS AND UNDERSTANDS CYPRIOT, PRIMARILY. PLAN IS TO CONTINUE MONITORING TODAY. NEW ORDERS TO D/C IV LASIX AND START PO FUROSEMIDE. ALSO DECREASED EVENING LANTUS TO 10UNITS TO START TONIGHT, DUE TO PT'S LOWER BLOOD SUGAR THIS MORNING. THIS MORNING HER BLOOD SUGAR WAS 50. NO SYMPTOMS OF HYPOGLYCEMIA. PT DRANK APPLE JUICE, ATE HER BREAKFAST WITH GOOD APPETITE, AND BLOOD SUGAR RECHECK WAS 118. PT'S DAUGHTER VANESSA VISITED AT BEDSIDE, RN UPDATED VANESSA ABOUT PLAN FOR TODAY.
--- NOTE | 2025-03-23 16:42 | NUR ---
RN USED MOTION GRAPHICS DESIGNER LINE TO DISCUSS HOME HEALTH WITH THE PT. MARIELA IS AGREEABLE TO HOME HEALTH FOR EDUCATION REGARDING NEW CARDIAC CONDITION.
--- NOTE | 2025-03-23 20:12 | NUR ---
A&O X4. PRIMARILY HUNGARIAN SPEAKING. RN UTILIZED MANAGER POWER PHONE WITH GOOD RESULTS. STARTED PO LASIX. GOOD APPETITE TODAY. PT WITH BILAT LOWER EXTREM EDEMA +1. LORA PULSES FAINT. TELEMETRY ON, SINUS IN THE 80'S WITH BUNDLE BRANCH BLOCK AND OCCASSIONAL PVC'S. ROOM AIR. PERIPHERAL IV TO LEFT LOWER ARM. INDEPENDENT IN ROOM. PLAN IS TO DISCHARGE TOMORROW HOME WITH HOME HEALTH. DAUGHTER VANESSA LIVES WITH PATIENT, AND ACTS MANAGER POWER.
[2025-03-23] MEDS ORDERED: Insulin Glargine-Yfgn 100 Unit/mL 3 ML SYR SC SCH (21:00)
[2025-03-24 04:08] VITALS: BP 151/63
--- NOTE | 2025-03-24 07:27 | NUR ---
PT ALERT AND ORIENTED. GED INSTRUCTOR CASTILLO USED FOR PLAN OF CARE AND EDUCATION. PT NEEDS REINFORCEMENT IN EDUCATION ON DISEASE PROGNOSIS. NO COMPLAINS OF PAIN.
[2025-03-24 07:31] VITALS: BP 155/65
[2025-03-24] MEDS ORDERED: Spironolactone 25 MG Tab PO SCH (09:00)
[2025-03-24 09:33] LABS: Bun/Creatinine Ratio 27.2 (12.0-20.0); Creatinine, Blood 1.14 mg/dL (0.40-1.00); Potassium, Blood 4.1 mmol/L (3.5-5.5)
[2025-03-24] MEDS ORDERED: JARDIANCE10 MG PO (12:41)
[2025-03-24] MEDS ORDERED: SPIR25 PO (12:42)
[2025-03-24] MEDS ORDERED: METO50ER PO (12:42)
[2025-03-24 12:49] VITALS: BP 149/77
--- NOTE | 2025-03-24 13:31 | NUR ---
ASSUMPTION OF CARE ASSUMED CARE AT 0700. PT AXO4, BENGALI ONLY, MANAGER TRANSPLANT PHONE @ BEDSIDE. DR SMITH DISCUSSED PLAN FOR DC WITH PT VIA MANAGER TRANSPLANT SERVICE WITH PT AND THEN WITH DAUGHTER VANESSA AT BEDSIDE. CHANGES TO INSULIN SCHEDULE BEING MADE PER MD. PT/DAUGHTER EXPRESS UNDERSTANDING. AWAITING DC ORDERS.
[2025-03-24 15:10] VITALS: BP 154/76
--- NOTE | 2025-03-24 16:24 | NUR ---
DC POST ASSUMPTION OF CARE- NO ACUTE CHANGES. VSS. DR'S WITH ORDERS TO DC. CALLED DR MENDEZ TO PICK AND REVIEW DC INSTRUCTIONS WITH PT AND RN. 1535 - PT EDUCATED REGARDING CHF, INSULIN CHANGES, MED CHANGES, ETC. PT AND DAUGHTER STATE UNDERSTANDINGS. DC PACKET COMPLETED. PT DC'D OUT OF HOSPITAL WITH VIA WALKING.
== END 2025-03-24 15:47 | disposition home or self-care (01) | DRG 291 ==
LOC: ER 22:08 → PCU 22:09 → MEDS 22:09 → PCU 03-21 07:17 → SURS 03-21 21:12
PROVIDERS: Emergency Medicine; Internal Medicine; ADMIT Student in an Organized Health Care Education/Training Program
DX: I13.0 Hypertensive heart and chronic kidney disease with heart failure and stage 1 through stage 4 chronic kidney disease, or unspecified chronic kidney disease (principal); I50.31 Acute diastolic (congestive) heart failure; J94.8 Other specified pleural conditions; E11.649 Type 2 diabetes mellitus with hypoglycemia without coma; E11.22 Type 2 diabetes mellitus with diabetic chronic kidney disease; N18.2 Chronic kidney disease, stage 2 (mild); E03.9 Hypothyroidism, unspecified; E78.5 Hyperlipidemia, unspecified; D50.9 Iron deficiency anemia, unspecified; E87.6 Hypokalemia; Z90.49 Acquired absence of other specified parts of digestive tract; Z79.4 Long term (current) use of insulin; Z79.82 Long term (current) use of aspirin; Z79.890 Hormone replacement therapy; Z79.899 Other long term (current) drug therapy; R06.00 Dyspnea, unspecified; R91.8 Other nonspecific abnormal finding of lung field
CPT/HCPCS: 36415; 71045; 71046; 71260; 80048; 80053; 82728; 82947; 83036; 83540; 83550; 83735; 83880; 84439; 84443; 84484; 85025; 85027; 93005; 93010; 93306; 93971; 96365; 96372; 96375; 96376; 99285-25; A9270; G0378; J1650; J1750; J1815; J1938; J7050; Q9967